=== PATIENT | female | born 1960 | race Caucasian/White ===

== ENCOUNTER 2019-06-07 11:39 | Emergency (ER) | payer OTHER, SELFPAY ==
[2019-06-07 12:15] VITALS: BP 131/69; PULSE 98; RESP 24; TEMP 38.8; O2SAT 98
--- NOTE | 2019-06-07 12:25 | ED.URI ---
HPI - URI/Sore Throat General Chief Complaint: Upper Respiratory Infection Stated Complaint: Flu like symptoms Time Seen by Provider: 06/07/19 12:10 Source: patient Mode of arrival: ambulatory Limitations: no limitations History of Present Illness HPI Narrative: Patient presents with chief complaint of fever, cough, sore throat that began on Wednesday. Patient states that she has been keeping her 2 grandchildren who tested positive for influenza B and strep. Patient states that she did not receive a flu shot this year. Patient denies any vomiting diarrhea. She states she has been able to eat and drink appropriately. Patient denies being immunocompromised. Related Data Allergies Allergy/AdvReac Type Severity Reaction Status Date / Time Penicillins Allergy Unknown Unknown Verified 04/08/17 10:46 Review of Systems Review of Systems: Narrative: CONSTITUTIONAL: Reports fever, chills, or sweats. EYES: Denies visual changes, redness, or discharge. ENT: Reports rhinorrhea, congestion, sore throat, denies otalgia. CARDIOVASCULAR: Denies chest pain, palpitations, or edema. RESPIRATORY: Reports cough denies dyspnea. GASTROINTESTINAL: Denies abdominal pain, nausea, vomiting, or diarrhea. GENITOURINARY: Denies dysuria or hematuria. SKIN: Denies rash or itching. MUSCULOSKELETAL: Denies back pain, joint pain, or myalgia. NEUROLOGIC: Denies headache, numbness, dizziness, or weakness. PSYCHIATRIC: Denies anxiety or depression. Exam Narrative: Exam Narrative: GENERAL: Well-appearing, well-nourished, and in no acute distress. HEAD: Normocephalic, atraumatic. EYES: PERRLA and EOMI. ENT: Nares mucosa edematous no rhinorrhea or epistaxis. Mucous membranes moist. Oropharynx erythematous but patent left without tonsillar exudate or other lesions. Bilateral TMs pearly hartley nonbulging NECK: Supple. No adenopathy or masses. No carotid bruits or JVD CHEST: Clear to auscultation. No respiratory distress. No wheezes rales or rhonchi. Dry cough heard during exam. HEART: Regular rate and rhythm. No murmur heard. Normal peripheral pulses. ABDOMEN: Soft, nontender, nondistended, normal active bowel sounds. EXTREMITIES: Normal range of motion. No edema. SKIN: Warm, dry, no rash. NEURO: No focal deficits. Alert and oriented x3. PSYCH: Normal mood and affect. Course Vital Signs Vital signs: Vital Signs Temperature 101.9 F H 06/07/19 12:15 Pulse Rate 98 06/07/19 12:15 Respiratory Rate 24 H 06/07/19 12:15 Blood Pressure 131/69 06/07/19 12:15 Pulse Oximetry 98 06/07/19 12:15 Temperature 101.9 F H 06/07/19 12:15 Pulse Rate 98 06/07/19 12:15 Respiratory Rate 24 H 06/07/19 12:15 Blood Pressure 131/69 06/07/19 12:15 Pulse Oximetry 98 06/07/19 12:15 MDM - URI/Sore Throat MDM Narrative Medical decision making narrative: Discussed with patient findings influenza B. Patient was negative for strep but states that she has been keeping her grandchildren who tested positive for influenza B and strep. Patient is allergic to penicillin-had rash as child. Denies anaphylactic symptoms. Patient states she is not allergic to Keflex to her knowledge. It is agreement to take Keflex for strep and Xofluza for influenza B. Instructed patient to follow-up with her primary care for reevaluation. Return to emergency department if she has any worsening or emergent symptoms. Patient denies any other questions or concerns at this time. Differential Diagnosis Differential diagnosis: Likely upper respiratory infection, croup, otitis media, sinusitis, viral infection, bronchitis, influenza and pharyngitis Lab Data Labs: Influenza A Screen Negative Reference Range: Negative Influenza B Screen Positive Reference Range: Negative Strep Screen Presumptive Negative *(Reference Range: Negative)* Discharge Plan Discharge Clinical Impression: Influenza, Strep pharyngitis Patient Di
[2019-06-07] MEDS: IBUPROFEN 400 MG TABLET 800 MG PO (13:08)
== END 2019-06-07 14:05 | disposition home or self-care (01) ==
PROVIDERS: Emergency Provider Emergency Medicine; PCP Internal Medicine
DX: J10.1 Influenza due to other identified influenza virus with other respiratory manifestations (principal); J02.0 Streptococcal pharyngitis
CPT/HCPCS: 87081; 87804; 87880; 99283; A9270